=== PATIENT | female | born 1980 | race Two or more races ===

== ENCOUNTER 2021-10-15 20:09 | Emergency (ER) | payer BC ==
[~2021-10-15] VITALS: Ht 154.9 cm; Wt 64.8 kg
[2021-10-16 00:01] LABS: Basophils # (auto) 0.1 10 ^3/uL (0-0.2); Eosinophils # (auto) 0 10 ^3/uL (0-0.8); Eosinophils % (auto) 0.4 % (0.0-7.0); Hemoglobin 9.7 g/dL (12.2-16.2); Lymphocytes # (auto) 2.7 10 ^3/uL (0.4-5.4); Monocytes # (auto) 0.9 10 ^3/uL (0-1.3); White Blood Cell 9.7 10^3/uL (4.4-10.8)
[2021-10-16 00:03] LABS: Basophils % (auto) 0.8 % (0.0-2.0); Lymphocytes % (auto) 28.4 % (10.0-50.0); Mean Corpuscular Hemoglobin 21.6 pg (28.0-32.0); Mean Corpuscular Hgb Conc. 30.3 g/dL (32.0-36.0); Mean Corpuscular Volume 71.3 fL (80.0-100.0); Monocytes % (auto) 9.2 % (0.0-12.0); Neutrophils # (auto) 5.9 10 ^3/uL (1.6-8.6); Neutrophils % (auto) 61.2 % (37.0-80.0); Red Blood Cells 4.49 10^6/uL (4.0-5.20); Red Cell Distribution Width 19.1 % (11.8-14.3)
[2021-10-16 00:10] LABS: Salicylate < 1.7 mg/dL (2.8-20.0)
[2021-10-16 00:11] LABS: Albumin 4.4 g/dL (3.4-5.0); BUN/Creatinine Ratio 22.4; Calcium 9.3 mg/dL (8.5-10.1); Potassium 3.6 mmol/L (3.5-5.1)
[2021-10-16 00:13] LABS: Bilirubin, Total 0.4 mg/dL (0.2-1.0); Total Protein 8.6 g/dL (6.4-8.2)
[2021-10-16 00:19] LABS: Acetaminophen < 2.0 ug/mL (10-30)
[2021-10-16 01:00] LABS: Urine WBC None Seen /hpf (0 - 5)
[2021-10-16 01:27] LABS: Urine Amorphous Crystal MANY /hpf (None Seen); Urine Bacteria MANY /hpf (None Seen); Urine Blood 1+ /uL (Negative); Urine Mucus MODERATE (None Seen); Urine Specific Gravity 1.032 (1.001-1.035)
[2021-10-16 01:32] LABS: Alcohol, Urine < 3.0 mg/dL (0-10); Amphetamine Screen, Urine POSITIVE (NEGATIVE); Barbiturate Scree,Urine NEGATIVE (NEGATIVE); Benzodiazephine Screen, Urine NEGATIVE (NEGATIVE); Cannabinoid Screen, Urine NEGATIVE (NEGATIVE); Cocaine Screen, Urine NEGATIVE (NEGATIVE); Opiate Scree,Urine NEGATIVE (NEGATIVE); Phencyclidine Screen, Urine NEGATIVE (NEGATIVE)
[2021-10-16] MEDS ORDERED: LORazepam 0.5 MG TAB PO ONE (10:00)
[2021-10-16] MEDS ORDERED: LORazepam 2MG/ML-1ML VIAL IM ONE (10:15)
[2021-10-16] MEDS ORDERED: diphenhdrAMINE HCL 50 MG/1 ML VL IM ONE (10:15)
[2021-10-16] MEDS ORDERED: HALOPERIDOL LACTATE 5 MG/ML INJ VIAL IM ONE (10:15)
[2021-10-16] MEDS ORDERED: ALPR0.25 PO (18:06)
[2021-10-16 18:34] VITALS: BP 103/53
== END 2021-10-16 19:00 | disposition home or self-care (01) ==
LOC: ER 20:09
DX: F29 Unspecified psychosis not due to a substance or known physiological condition (principal)
CPT/HCPCS: 36415; 80053; 80307; 80329; 81001; 85025; 96372; 99285; J1200; J1630; J2060; 93005